=== PATIENT | male | born 1960 | race Caucasian/White ===

== ENCOUNTER 2020-03-11 18:02 | Emergency (ER) | payer SELFPAY ==
[~2020-03-11] VITALS: Ht 165.1 cm; Wt 105.0 kg
[2020-03-11 19:16] LABS: BILIRUBIN,URINE SMALL (NEG); CLARITY,URINE CLEAR; NITRITE,URINE NEGATIVE (NEG); PROTEIN,URINE 30 mg/dL (NEG-TRACE)
[2020-03-11 19:23] LABS: COLOR,URINE DK YELLOW
[2020-03-11 19:26] VITALS: BP 150/90
[2020-03-11 19:26] LABS: WBC,URINE >40 /HPF (0-4)
[2020-03-11 19:27] LABS: BACTERIA,URINE FEW /HPF (0-FEW); SQUAMOUS EPITHELIAL CELL,UR FEW /LPF
[2020-03-11 19:55] LABS: BASO # 0.1 x10^3/uL (0.0-0.2); BASO % 0 % (0-3); EOS # 0.5 x10^3/uL (0.0-0.7); EOS % 3 % (0-3); HEMATOCRIT 39.4 % (39.0-53.0); HEMOGLOBIN 13.6 g/dL (13.0-17.5); LYMPH # 2.5 x10^3/uL (1.0-4.8); LYMPH % 12 % (24-48); MEAN CORPUSCULAR HEMOGLOBIN 31 pg (25-35); MEAN CORPUSCULAR HGB CONC 35 g/dL (31-37); MEAN CORPUSCULAR VOLUME 89 fL (79-100); MONO # 1.3 x10^3/uL (0.0-1.1); MONO % 6 % (0-9); NEUT # 16.3 x10^3/uL (1.8-7.7); NEUT % 79 % (31-73); PLATELET COUNT 353 x10^3/uL (140-400); RED BLOOD COUNT 4.42 x10^6/uL (4.30-5.70); RED CELL DISTRIBUTION WIDTH 13.8 % (11.5-14.5); WHITE BLOOD COUNT 20.8 x10^3/uL (4.0-11.0)
[2020-03-11 20:10] LABS: CALCIUM 8.8 mg/dL (8.5-10.1); CREATININE 0.9 mg/dL (0.7-1.3); POTASSIUM 4.5 mmol/L (3.5-5.1)
[2020-03-11 20:22] LABS: ALBUMIN 3.3 g/dL (3.4-5.0); TOTAL BILIRUBIN 0.4 mg/dL (0.2-1.0); TOTAL PROTEIN 6.7 g/dL (6.4-8.2)
[2020-03-11 20:39] LABS: % BANDS 2 % (0-9); % EOS 4 % (0-5); % LYMPHS 15 % (24-48); % MONOS 1 % (0-10); % SEGS 78 % (35-66)
[2020-03-11 20:40] LABS: PLT ESTIMATE ADEQUATE (ADEQUATE)
--- NOTE | 2020-03-11 21:05 | PHYS DOC ---
Past Medical History Past Medical History: COPD, High Cholesterol, Hypertension, DE Past Surgical History: Other Additional Past Surgical Histo: "I HAD MY LUNG SCRAPPED OUT" Smoking Status: Current Every Day Smoker Alcohol Use: None Drug Use: None Adult General Chief Complaint Chief Complaint: URINARY RETENTION HPI HPI Patient is a 59 year old male who presents with urinary frequency and incontinence. Patient states he has urgency to urinate but it is only able to void a small amount of urine. Symptoms began earlier today. Denies, abdominal pain, hematuria, testicular pain, tenderness or swelling or history of kidney stones.. Denies history of prostate enlargement or prostate cancer. No fever chills or sweats. No other acute symptoms or complaints. No prior abdominal surgeries.[] Review of Systems Review of Systems ROS as per HPI. All other systems were reviewed and found to be within normal limits, except as documented in this note. Current Medications Current Medications Current Medications Medications (Trade) Dose Ordered Sig/Marcela Start Time Stop Time Status Last Admin Dose Admin Ceftriaxone Sodium (Rocephin) 1 gm 1X ONCE 03/11/20 22:30 03/11/20 22:04 DC Info (CONTRAST GIVEN -- Rx MONITORING) 1 each PRN DAILY PRN 03/11/20 21:15 03/13/20 21:14 Iohexol (Omnipaque 300 Mg/ml) 75 ml 1X ONCE 03/11/20 21:30 03/11/20 21:31 DC 03/11/20 21:11 75 ML Levofloxacin (Levaquin) 500 mg 1X ONCE 03/11/20 22:30 03/11/20 22:31 Allergies Allergies Allergies Coded Allergies Type Severity Reaction Last Updated Verified Penicillins Allergy Intermediate 03/11/20 Yes Physical Exam Physical Exam Constitutional: Well developed, well nourished, no acute distress, non-toxic appearance. [] HENT: Normocephalic, atraumatic, bilateral external ears normal, oropharynx moist, no oral exudates, nose normal. [] Eyes: PERRLA, EOMI, conjunctiva normal, no discharge. [] Neck: Normal range of motion, no tenderness, supple, no stridor. [] Cardiovascular:Heart rate regular rhythm, no murmur [] Lungs & Thorax: Bilateral breath sounds clear to auscultation [] Abdomen: Bowel sounds normal, soft, no tenderness. [] Skin: Warm, dry, no erythema, no rash. [] Back: No tenderness, no CVA tenderness. [] Extremities: No tenderness, no cyanosis, no clubbing, ROM intact, no edema. [] Neurologic: Alert and oriented X 3, normal motor function, normal sensory function, no focal deficits noted. [] Psychologic: Affect normal, judgement normal, mood normal. [] Current Patient Data Vital Signs Vital Signs Date Time Temp Pulse Resp B/P (MAP) Pulse Ox O2 Delivery O2 Flow Rate FiO2 03/11/20 18:50 98.7 92 22 161/83 (109) 95 Room Air 98.7 Lab Values Laboratory Tests Test 03/11/20 19:08 03/11/20 19:34 Urine Collection Type Unknown Urine Color Dk yellow Urine Clarity Clear Urine pH 6.0 (<5.0-8.0) Urine Specific [place] 1.025 (1.000-1.030) Urine Protein 30 mg/dL (NEG-TRACE) Urine Glucose (UA) 500 mg/dL (NEG) Urine Ketones (Stick) Trace mg/dL (NEG) Urine Blood Large (NEG) Urine Nitrite Negative (NEG) Urine Bilirubin Small (NEG) Urine Urobilinogen Dipstick 4.0 mg/dL (0.2 mg/dL) Urine Leukocyte Esterase Large (NEG) Urine RBC 11-20 /HPF (0-2) Urine WBC >40 /HPF (0-4) Urine Squamous Epithelial Cells Few /LPF Urine Bacteria Few /HPF (0-FEW) Urine Mucus Marked /LPF White Blood Count 20.8 x10^3/uL (4.0-11.0) H Red Blood Count 4.42 x10^6/uL (4.30-5.70) Hemoglobin 13.6 g/dL (13.0-17.5) Hematocrit 39.4 % (39.0-53.0) Mean Corpuscular Volume 89 fL (79-100) Mean Corpuscular Hemoglobin 31 pg (25-35) Mean Corpuscular Hemoglobin Concent 35 g/dL (31-37) Red Cell Distribution Width 13.8 % (11.5-14.5) Platelet Count 353 x10^3/uL (140-400) Neutrophils (%) (Auto) 79 % (31-73) H Lymphocytes (%) (Auto) 12 % (24-48) L Monocytes (%) (Auto) 6 % (0-9) Eosinophils (%) (Auto) 3 % (0-3) Basophils (%) (Auto) 0 % (0-3) Neutrophils # (Auto) 16.3 x10^3/uL (1.8-7.7) H Lymphocytes # (Auto) 2.5 x10^3/uL (1.0-4.8) Monocytes # (Auto) 1.3 x10^3/uL (0.0-1.1) H Eosinophils # (Auto) 0.5 x10^3/uL (0.0-0.7) Basophils # (Auto) 0.1 x10^3/uL (0.0-0.2) Segmented Neutrophils % 78 % (35-66) H Band Neutrophils % 2 % (0-9) Lymphocytes % 15 % (24-48) L Monocytes % 1 % (0-10) Eosinophils % 4 % (0-5) Platelet Estimate Adequate (ADEQUATE) Sodium Level 137 mmol/L (136-145) Potassium Level 4.5 mmol/L (3.5-5.1) Chloride Level 101 mmol/L (98-107) Carbon Dioxide Level 25 mmol/L (21-32) Anion Gap 11 (6-14) Blood Urea Nitrogen 11 mg/dL (8-26) Creatinine 0.9 mg/dL (0.7-1.3) Estimated GFR (Cockcroft-Gault) 87.0 BUN/Creatinine Ratio 12 (6-20) Glucose Level 190 mg/dL (70-99) H Calcium Level 8.8 mg/dL (8.5-10.1) Total Bilirubin 0.4 mg/dL (0.2-1.0) Aspartate Amino Transferase (AST) 33 U/L (15-37) Alanine Aminotransferase (ALT) 44 U/L (16-63) Alkaline Phosphatase 114 U/L (46-116) Total Protein 6.7 g/dL (6.4-8.2) Albumin 3.3 g/dL (3.4-5.0) L Albumin/Globulin Ratio 1.0 (1.0-1.7) Laboratory Tests 03/11/20 19:34 Laboratory Tests 03/11/20 19:34 EKG EKG [] Radiology/Procedures Radiology/Procedures [CT abdomen/pelvis: Enlarged prostate and thickened bladder wall] Course & Med Decision Making Course & Med Decision Making Pertinent Labs and Imaging studies reviewed. (See chart for details) [PO abx Given. Will discharge home with instructions to follow-up with PCP later this week.] Dragon Disclaimer Dragon Disclaimer This electronic medical record was generated, in whole or in part, using a voice recognition dictation system. Departure Departure Impression: Primary Impression: Acute cystitis Additional Impression: Prostate enlargement Disposition: HOME, SELF-CARE Condition: STABLE Referrals: NO PCP (PCP) Scripts Ciprofloxacin Hcl (CIPRO) 500 Mg Tablet 1 TAB PO BID for 10 Days, #20 TAB 0 Refills Prov: GRZEGORZ HOGAN DO 03/11/20 Problem Qualifiers GRZEGORZ HOGAN DO Mar 11, 2020 21:05
[2020-03-11] MEDS ORDERED: CONTRAST GIVEN. MC PRN (21:15)
[2020-03-11] MEDS ORDERED: IOHEXOL 300 MG/ML 100ML VIAL. IV ONE (21:30)
--- NOTE | 2020-03-11 21:48 | RAD ---
CT scan of the abdomen and pelvis with contrast 03/11/2020 CLINICAL HISTORY: Right lower quadrant abdominal pain. Urinary retention. TECHNIQUE: After the intravenous administration of 75 cc of Omnipaque 300, contiguous, 5 mm axial sections were obtained through the abdomen and pelvis. One or more of the following individualized dose reduction techniques were utilized for this study: 1. Automated exposure control. 2. Adjustment of the mA and/or kV according to patient size. 3. Use of iterative reconstruction technique. FINDINGS: Images through the lung bases demonstrate mild cardiomegaly. Minimal dependent subsegmental atelectasis is seen bilaterally. The liver, spleen, pancreas, adrenal glands and kidneys are within normal limits. Atherosclerotic calcification of the abdominal aorta is seen. The abdominal aorta tapers normally. The gallbladder is contracted. No free fluid or free air is seen within the abdomen. There is no evidence of bowel obstruction. Images through the pelvis demonstrate the urinary bladder to be contracted. The prostate gland is enlarged likely related to BPH. Diffuse wall thickening of the urinary bladder is seen which may reflect hypertrophy related to bladder outlet obstruction. Calcifications are seen within the pelvis consistent with phleboliths. No free fluid is seen. Scattered diverticula are seen involving the sigmoid colon. No inflammatory changes are seen in the adjacent fat. Minimal S-shaped curvature of the thoracolumbar spine is seen. Degenerative changes involving the lower thoracic and throughout the lumbar spine along with both hips. IMPRESSION: The urinary bladder is contracted. Diffuse wall thickening of the urinary bladder is seen which may reflect hypertrophy related to bladder outlet obstruction from BPH. No acute abnormality is seen. Electronically signed by: Franco Rodriguez MD (03/11/2020 9:44 PM) [id number]
[2020-03-11] MEDS ORDERED: CIPR500T94 PO (22:07)
[2020-03-11] MEDS ORDERED: cefTRIAXone IV Push 1 GM VIAL. IVP ONE (22:30)
== END 2020-03-11 22:16 | disposition home or self-care (01) ==
LOC: ER 18:02
DX: N30.00 Acute cystitis without hematuria (principal); N40.0 Benign prostatic hyperplasia without lower urinary tract symptoms; R35.0 Frequency of micturition; J44.9 Chronic obstructive pulmonary disease, unspecified; E78.00 Pure hypercholesterolemia, unspecified; I10 Essential (primary) hypertension; I25.2 Old myocardial infarction; F17.200 Nicotine dependence, unspecified, uncomplicated; Z98.890 Other specified postprocedural states; Z88.0 Allergy status to penicillin
CPT/HCPCS: 36415; 74177; 80053; 81001; 85007; 85025; 87086; 99285; Q9967

== ENCOUNTER → 2021-05-21 | Outpatient (CLI) | payer OTHER ==
[~2021-05-21] MED LIST: CIPR500T94 PO
[2021-05-21 13:06] LABS: BASO # 0.1 x10^3/uL (0.0-0.2); BASO % 1 % (0-3); EOS # 0.2 x10^3/uL (0.0-0.7); EOS % 2 % (0-3); HEMATOCRIT 40.6 % (39.0-53.0); HEMOGLOBIN 14.4 g/dL (13.0-17.5); LYMPH % 21 % (24-48); MEAN CORPUSCULAR HEMOGLOBIN 32 pg (25-35); MEAN CORPUSCULAR HGB CONC 35 g/dL (31-37); MEAN CORPUSCULAR VOLUME 90 fL (79-100); MONO # 0.6 x10^3/uL (0.0-1.1); MONO % 7 % (0-9); NEUT # 6.5 x10^3/uL (1.8-7.7); NEUT % 69 % (31-73); PLATELET COUNT 420 x10^3/uL (140-400); RED BLOOD COUNT 4.52 x10^6/uL (4.30-5.70); WHITE BLOOD COUNT 9.4 x10^3/uL (4.0-11.0)
[2021-05-21 13:26] LABS: ALBUMIN 3.3 g/dL (3.4-5.0); ALBUMIN/GLOBULIN RATIO 0.9 (1.0-1.7); CALCIUM 9.2 mg/dL (8.5-10.1); CREATININE 0.8 mg/dL (0.7-1.3); GFR 99.3; POTASSIUM 4.1 mmol/L (3.5-5.1); TOTAL BILIRUBIN 0.2 mg/dL (0.2-1.0)
[2021-05-22 02:15] LABS: HEMOGLOBIN A1C 12.3 % (4.8-5.6)
== END ==
LOC: LAB 12:29
PROVIDERS: ATTEND Family Medicine
DX: Z12.5 Encounter for screening for malignant neoplasm of prostate (principal); R35.0 Frequency of micturition; R73.09 Other abnormal glucose
CPT/HCPCS: 36415; 80053; 83036; 85025; G0103